=== PATIENT | female | born 1960 | race African-American/Black ===

== ENCOUNTER → 2016-05-14 | Outpatient (CLI) | payer OTHER ==
[~2016-05-14] MED LIST: CLONIDINE 0.2M0.2 MG GT; GLUCOPHAGE1000 MG ORAL; HYDRALAZINE HCL25 M2 PO; LOSARTAN POTASS50 MG ORAL; REPAGLINIDE2 MG PO; SIMVASTATIN5 MG ORAL; TENORMIN100 MG ORAL; VITAMIN D1000 UNI1 ORAL
[2016-05-14 13:50] VITALS: BP 173/94
--- NOTE | 2016-05-14 14:19 | GI Initial Consult Note ---
History of Present Illness General Date patient seen: May 14, 2016 Time patient seen: 14:09 Referring physician: WILLIAM Reason for Consultation: COLONOSCOPY SCREENING Present Illness HPI 55 year old pleasant female referred to [facility] by Dr. Batista for initial colonoscopy screening. No general GI complaints or distressed noted at this time. Home Meds Reported Medications Cholecalciferol (Vitamin D3)* (VITAMIN D*) 1,000 Unit Tablet, 1000 UNIT ORAL DAILY, #30 TAB 05/14/16 Simvastatin (ZOCOR) Unknown Strength Tablet, ORAL BEDTIME, TAB 05/14/16 Atenolol (TENORMIN) 100 Mg Tablet, 100 MG ORAL DAILY, TAB 05/14/16 Losartan Potassium* (LOSARTAN POTASSIUM*) 50 Mg Tablet, 100 MG ORAL DAILY, TAB 05/14/16 Hydralazine HCl (Hydralazine HCl) 25 Mg Tablet, 25 MG PO BID, TAB 05/14/16 Clonidine HCl (Clonidine HCl) 0.2 Mg Tablet, 0.2 MG GT BID, TAB 05/14/16 Repaglinide (Repaglinide) 2 Mg Tablet, 2 MG PO TID, TAB 05/14/16 Metformin Hcl (GLUCOPHAGE) 1,000 Mg Tablet, 500 MG ORAL BID, TAB 05/14/16 Med list reviewed/reconciled: Yes Allergies: Coded Allergies: No Known Allergies (Unverified , 05/14/16) Patient History PMH Narrative DM HTN Cholesterol PSHx denies Family History Narrative MOTHER >> CVA, DM, HTN SISTER >> Bone CA Review of Systems All Other Systems: negative except mentioned in HPI Physical Exam Vital Signs Date Time Temp Pulse Resp B/P Pulse Ox O2 Delivery O2 Flow Rate FiO2 05/14/16 13:50 98.8 56 16 173/94 96 Sp02 EP Interpretation: reviewed General Appearance: normal inspection, well appearing, no apparent distress, alert Head: normocephalic EENT: normal ENT inspection Neck: supple Respiratory: lungs clear, no respiratory distress Cardiovascular: normal rate Gastrointestinal: normal inspection, non tender, soft, normal bowel sounds Rectal: deferred Musculoskeletal: back normal Neurologic: normal inspection, alert, oriented x3, responsive Psychiatric: normal inspection, judgement/insight normal, memory normal Skin: normal color Lymphatic: normal inspection, no adenopathy GI: Plan Problems: (1) Colonoscopy planned (2) HTN (hypertension) (3) Diabetes mellitus (4) Elevated cholesterol Plan colonoscopy requires prior authorization, we will contact patient to schedule - [facility] & [employer] prep instructions given and acknowledged by patient. Seen with . Thank you for referring this kind patient. Sharmin Williamson N.P. May 14, 2016 14:19
== END | disposition home or self-care (01) ==
LOC: PAN 12:59
DX: I10 Essential (primary) hypertension (principal); E11.9 Type 2 diabetes mellitus without complications; E78.00 Pure hypercholesterolemia, unspecified; Z83.3 Family history of diabetes mellitus; Z82.49 Family history of ischemic heart disease and other diseases of the circulatory system; Z82.3 Family history of stroke; Z80.8 Family history of malignant neoplasm of other organs or systems
CPT/HCPCS: 99201

== ENCOUNTER 2016-08-05 07:40 | Day surgery (SDC) | payer OTHER ==
[2016-08-05] VITALS (8 sets, daily range): BP systolic 141–179; BP diastolic 71–89
[~2016-08-05] VITALS: Ht 165.1 cm; Wt 83.9 kg
[~2016-08-05 07:40] MED LIST changes: -CLONIDINE 0.2M0.2 MG GT; +CLONIDINE 0.2M0.2 MG PO
[2016-08-05] MEDS ORDERED: Propofol 10mg/ml 20ml IV ONE (08:30)
[2016-08-05] MEDS ORDERED: Lidocaine 1% MPF 10mg/ml 5ml ONE (08:30)
--- NOTE | 2016-08-05 09:35 | Pre-Procedure Note/Attestation ---
Pre-Procedure Note/Attestation Complete Prior to Procedure Planned Procedure: not applicable Procedure Narrative: colonoscopy Indications for Procedure Pre-Operative Diagnosis: screening colon Attestation I attest that I discussed the nature of the procedure; its benefits; risks and complications; and alternatives (and the risks and benefits of such alternatives ), prior to the procedure, with the patient (or the patient's legal dental detail representative). I attest that, if there was a reasonable possibility of needing a blood transfusion, the patient (or the patient's legal dental detail representative) was given the [facility] standardized written summary, pursuant to the Trevor Jordi Blood Safety Act ([place] Health and Safety Code # 1645, as amended). I attest that I re-evaluated the patient just prior to the surgery and that there has been no change in the patient's H&P, except as documented below: LEONEL ROSS August 05, 2016 09:35
--- NOTE | 2016-08-05 09:35 | Short Stay Surgery H&P ---
History of Present Illness History of Present Illness Chief Complaint see recent consult HPI Emily Lehman is a 56 year old female who was admitted on for Colon Screening Patient History Allergies: Coded Allergies: No Known Allergies (Unverified , 05/14/16) PAST MEDICAL HISTORY: Past Surgeries: Social History: Medication History Scheduled Atenolol (Tenormin), 100 MG ORAL DAILY, (Reported) Cholecalciferol (Vitamin D3)* (Vitamin D*), 1,000 UNIT ORAL DAILY, (Reported) Clonidine HCl (Clonidine HCl), 0.1 MG PO TID, (Reported) Hydralazine HCl (Hydralazine HCl), 50 MG PO TID, (Reported) Losartan Potassium* (Losartan Potassium*), 100 MG ORAL DAILY, (Reported) Metformin Hcl (Glucophage), 500 MG ORAL BID, (Reported) Repaglinide (Repaglinide), 2 MG PO TID, (Reported) Simvastatin (Zocor), 20 MG ORAL BEDTIME, (Reported) Physical Exam Vital Signs Last Vital Signs Date Time Temp Pulse Resp B/P Pulse Ox O2 Delivery O2 Flow Rate FiO2 08/05/16 08:46 97.9 56 18 141/71 99 Room Air Plan Attestation Are the patient's medical conditions optimized for surgery? LEONEL ROSS August 05, 2016 09:35
--- NOTE | 2016-08-05 10:01 | Anethesia Preoperative Eval ---
Anesthesia Pre-op PMH/ROS General Date of Evaluation: August 05, 2016 Time of Evaluation: 09:35 Anesthesiologist: chalino ASA Score: ASA 3 Mallampati Score Class I : Soft palate, uvula, fauces, pillars visible Class II: Soft palate, uvula, fauces visible Class III: Soft palate, base of uvula visible Class IV: Only hard plate visible Mallampati Classification: Class II Surgeon: renee Surgical Procedure: colonoscopy creening Anesthesia History: none Family History: no anesthesia problems Allergies: Coded Allergies: No Known Allergies (Unverified , 05/14/16) Medications: see eMAR Past Medical History Cardiovascular: Reports: HTN, other - hyprcholesterolemia Endocrine: Reports: DM Other: obesity Anesthesia Pre-op Phys. Exam Physician Exam Last Vital Signs Date Time Temp Pulse Resp B/P Pulse Ox O2 Delivery O2 Flow Rate FiO2 08/05/16 08:46 97.9 56 18 141/71 99 Room Air Constitutional: NAD Neurologic: CN 2-12 intact Cardiovascular: RRR Respiratory: CTA Gastrointestinal: S/NT/ND Airway Exam Mallampati Score: Class II Neck: supple Teeth: missing, broken Anesthesia Pre-op A/P Studies Pre-op Studies: EKG Risk Assessment & Plan Assessment: colonoscopy screening Plan: colonoscopy Status Change Before Surgery: No Pre-Antibiotics Drug: JOURDAN Gallardo August 05, 2016 10:01
--- NOTE | 2016-08-05 10:03 | Immediate Post-Op Evaluation ---
Immediate Post-Op Evalulation Immediate Post-Op Evalulation Procedure: colonoscopy Date of Evaluation: August 05, 2016 Time of Evaluation: 10:25 IV Fluids: 0.9ns 350ml Blood Products: none Estimated Blood Loss: negligible Blood Pressure Systolic: 150 Blood Pressure Diastolic: 89 Pulse Rate: 55 Respiratory Rate: 16 O2 Sat by Pulse Oximetry: 99 Temperature (Fahrenheit): 97.5 Pain Score (1-10): 0 Nausea: No Vomiting: No Complications none Patient Status: awake, reacts, patent Hydration Status: adequate Drug: JUORDAN Gallardo August 05, 2016 10:02
--- NOTE | 2016-08-05 10:07 | Endoscopy Procedure Note ---
Endoscopy Procedure Note Indication for Procedure: screening Procedures Performed: colonoscopy Operative Findings/Diagnosis: one polyp Specimen: yes Pt Tolerated Procedure Well: Yes Estimated Blood Loss: none Anesthesiologist: rafaela mosquera Anesthesia: MAC Implant(s) used?: No 50 yrs or older w/o bx or poly: No 10yrs. F/U not recommended: Yes If not recommended, why?: Above average risk 10 yrs. F/U needed: Yes 18 years or older w/prev. colo: No LEONEL ROSS August 05, 2016 10:07
--- NOTE | 2016-08-05 17:16 | Procedure Note ---
DATE OF PROCEDURE: 08/05/2016 SURGEON: Martin Lynch M.D. PROCEDURE: Colonoscopy with polypectomy. ANESTHESIOLOGIST: Reena Cabello M.D. INSTRUMENT: Olympus adult flexible colonoscope. INDICATION: Screening colonoscopy evaluation. REASON FOR PROCEDURE: The procedure, risks, benefits, and possible consequences, including hemorrhage, aspiration, perforation and infection, and alternative treatments, were explained to the patient/legal guardian by Dr. Martin Lynch and the patient/legal guardian understood and accepted these risks. DESCRIPTION OF PROCEDURE: After informed consent was obtained and the patient was adequately sedated. First rectal exam was performed, which was positive for internal hemorrhoids. Then, the scope was advanced from the rectum into the cecum documented by appendiceal orifice, ileocecal valve, and right upper quadrant palpation. Quality of prep was very good. The patient had one polyp in the ascending colon, pedunculated, measured roughly about 6 mm, removed with snare polypectomy technique. There was no further polyp seen in this colonoscopy examination. The patient had diverticulosis only on right colon, ascending colon area. Retroflexion of rectum showed evidence of internal hemorrhoids. SUMMARY OF FINDINGS: 1. One colonic polyp removed, see above for details. 2. Diverticulosis. 3. Internal hemorrhoids. RECOMMENDATIONS: Follow up biopsies and treat accordingly. Martin Lynch M.D. DR: RENARD JOB#: [id number] CC:
[2016-08-06 20:55] VITALS: BP 167/82
--- NOTE | 2016-08-06 20:55 | 48 Hour Post Anesthesia Eval ---
Post Anesthesia Evaluation Procedure: colonoscopy Date of Evaluation: August 05, 2016 Time of Evaluation: 10:55 Blood Pressure Systolic: 167 0: 82 Pulse Rate: 52 Respiratory Rate: 18 Temperature (Fahrenheit): 97.8 O2 Sat by Pulse Oximetry: 99 Airway: patent Nausea: No Vomiting: No Pain Intensity: 0 Hydration Status: adequate Cardiopulmonary Status: stable Mental Status/LOC: patient returned to baseline Post-Anesthesia Complications: none Follow-up care needed: N/A JOURDAN CAIN August 06, 2016 20:55
== END 2016-08-05 11:50 | disposition home or self-care (01) ==
LOC: GAS 07:40
DX: Z12.11 Encounter for screening for malignant neoplasm of colon (principal); D12.2 Benign neoplasm of ascending colon; K57.30 Diverticulosis of large intestine without perforation or abscess without bleeding; K64.8 Other hemorrhoids; I10 Essential (primary) hypertension; E78.00 Pure hypercholesterolemia, unspecified; E11.9 Type 2 diabetes mellitus without complications; E66.9 Obesity, unspecified
CPT/HCPCS: 45385; 82962; J2704; 94003; 94150

== ENCOUNTER 2016-08-19 12:54 | Outpatient (CLI) | payer OTHER ==
--- NOTE | 2016-08-19 14:21 | GI Progress Note ---
Assessment/Plan Problems: (1) Diverticulosis ICD Codes: K57.90 - Diverticulosis of intestine, part unspecified, without perforation or abscess without bleeding SNOMED: 447395314 (2) Hemorrhoid ICD Codes: K64.9 - Unspecified hemorrhoids SNOMED: 35409945 (3) Colonoscopy planned SNOMED: 323699595 (4) Elevated cholesterol ICD Codes: E78.00 - Pure hypercholesterolemia, unspecified SNOMED: 26655079 Status: stable Status Narrative Seen with Dr. Lynch. Assessment/Plan s/p COLONOSCOPY SUMMARY OF FINDINGS: 1. One colonic polyp removed, see above for details. 2. Diverticulosis. 3. Internal hemorrhoids. RECOMMENDATIONS: Follow up biopsies and treat accordingly >> unremarkable RTC prn repeat colonoscopy x 5 years Subjective Gastrointestinal/Abdominal: Reports: no symptoms Objective T 98.8 BP 156/81 P 54 96 RA Denies weight loss. General Appearance: no apparent distress, alert Cardiovascular: normal rate Respiratory/Chest: normal breath sounds, no respiratory distress Abdominal Exam: normal bowel sounds, non tender, soft Extremities: normal range of motion Sharmin Williamson N.P. Aug 19, 2016 14:21
== END 2016-08-19 13:10 | disposition home or self-care (01) ==
LOC: PAN 12:54
DX: K57.90 Diverticulosis of intestine, part unspecified, without perforation or abscess without bleeding (principal); K64.9 Unspecified hemorrhoids; E78.00 Pure hypercholesterolemia, unspecified; Z86.010 Personal history of colon polyps
CPT/HCPCS: 99211